=== PATIENT | female | born 2000 ===

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

== ENCOUNTER 2023-01-11 07:18 | Emergency (ER) | payer MEDICAID, SELFPAY ==
[2023-01-11 07:32] VITALS: BP 114/70; PULSE 88; RESP 18; TEMP 36.7; BMI 41.5
--- NOTE | 2023-01-11 07:42 | ED.NAVMDI ---
HPI - Nausea/Vomiting/Diarrhea General Chief complaint: Nausea/Vomiting/Diarrhea Stated complaint: Vomiting Time Seen by Provider: 01/11/23 07:23 Source: patient Mode of arrival: ambulatory Limitations: no limitations History of Present Illness HPI Narrative: patient is a 22-year-old female who presents emergency department for evaluation of nausea vomiting and diarrhea. She reports sudden onset at 0400 this morning, 4 episodes of clear / yellow emesis, single episode of diarrhea; loose stools. Diffuse upper abdominal pain with onset after multiple episodes of vomiting. Reports her son is ill at home with RSV, otherwise no known sick contacts. She denies fevers, chills, headache, dizziness, lightheadedness, URI symptoms, chest pain, shortness of breath, back pain. She endorses urinary frequency but denies dysuria, hematuria, possibility of with last menstrual period 12/27/2022 on Nexplanon. Related Data Previous Rx's Medication Instructions Recorded ondansetron 4 mg disintegrating 4 mg PO Q8H PRN nausea and 01/11/23 tablet vomiting #10 tabs Allergies Allergy/AdvReac Type Severity Reaction Status Date / Time No Known Allergies Allergy Unverified 11/24/19 17:09 Review of Systems Review of Systems: Yes all other systems are reviewed and are negative [facility] Past Medical History Attestation statement: The following information was validated with the patient. Source: old records reviewed Social History Social History Alcohol intake: never Smoked in Last 30 Days: No Use of substances other than those prescribed or required for medical reasons: No Advance Directives: No Physical Exam Vital Signs: Vital Signs: Last Vital Signs Temp 98.0 F 01/11/23 07:32 Pulse 88 01/11/23 07:32 Resp 18 01/11/23 07:32 BP 114/70 01/11/23 07:32 BMI result Body Mass Index 41.5 Appearance: Alert.?Oriented to person, place and time. No acute distress.?Normal affect. Eyes: Pupils equal, round and reactive to light.? ENT: Pharynx normal.?? TM normal bilaterally. Neck: Normal inspection.? Neck supple.?? No cervical lymphadenopathy CVS: Heart sounds normal. Normal heart rate and rhythm.? Pulses normal.?? Respiratory: No respiratory distress.? Lung sounds clear to auscultation bilaterally?? Abdomen: Soft With diffuse mild tenderness upon palpation. No rigidity. No guarding. No rebound tenderness. Negative Guillaume sign.. Normoactive bowel sounds. no CVA tenderness. Skin: Skin warm and dry.? Normal skin color.? Extremities: No lower extremity edema.? Neuro: Moves all extremities spontaneously. Sensation intact bilaterally. Ambulates with normal steady gait. Course Reevaluation(s) Reevaluation #1: Patient tolerating oral intake at this time, reports improvement in nausea with Zofran, no further episodes of vomiting. Labs are overall unremarkable, No leukocytosis, no electrolyte abnormality, no TANISHA. COVID- 19 and influenza testing is negative. Urinalysis without evidence of infection. Unlikely acute hepatobiliary etiology. I suspect viral syndrome, likely RSV secondary to sun currently being ill. Discussed conservative treatment. Zofran as needed are nausea vomiting. Outpatient follow-up with primary care provider and worrisome signs and symptoms that would warrant re-evaluation in the emergency department. All questions answered. Stable for discharge. Time: 09:28 Medications Administered Discontinued Medications Generic Name Dose Route Start Last Admin Trade Name Freq PRN Reason Stop Dose Admin Sodium Chloride 1,000 mls @ 999 mls/hr 01/11/23 07:45 01/11/23 07:52 Ns IV 01/11/23 08:45 999 mls/hr .Q1H1M KAY Administration Ondansetron HCl 4 mg 01/11/23 07:36 01/11/23 07:58 Ondansetron Hcl 4 Mg/2 Ml Vial IVPUSH 01/11/23 07:37 4 mg ONCE ONE Administration Medical Decision Making Medical Decision Making MDM Narrative: Patient is a 22-year-old female who presents emergency department for evaluation of sudden onset nausea vomiting and diarrhea earlier this morning while she was at work. Her son is ill at home with RSV currently experiencing respiratory symptoms, she denies URI symptoms. 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 Her abdominal examination reveals mild tenderness upon palpation diffusely, not consistent with acute abdomen. Overall she is well-appearing, nontoxic, afebrile, no tachycardia. No respiratory distress. Will obtain CBC to evaluate for leukocytosis/ anemia, CMP and lipase to evaluate for abnormal electrolytes /abnormal renal function/ abnormal hepatic/biliary function, Viral testing, hCG and Urinalysis. I suspect this is most likely a viral syndrome verses urinary tract infection. Patient received 1 L normal saline IV fluid, in addition to Zofran IV. Differential Diagnosis Differential Diagnoses: The differential diagnosis associated with the presentation includes ( COVID- 19, influenza, RSV, gastroenteritis, urinary tract infection. less likely acute cholecystitis, cholelithiasis, pancreatitis, PUD, obstruction, diverticulitis, appendicitis, pyelonephritis) Lab Data MDM Lab Attestation statement: I reviewed the patient's lab results. 01/11/23 07:51 01/11/23 07:51 Labs: Lab Results 01/11/23 01/11/23 Range/Units 07:51 08:34 WBC 10.5 (4.8-10.8) X10*3/uL RBC 5.10 (4.20-5.50) X10*6/uL Hgb 12.7 (12.0-16.0) g/dl Hct 41.0 (37.0-47.0) % MCV 80.4 (80.0-98.0) fL MCH 24.9 L (27.0-33.0) pg MCHC 31.0 (31.0-35.0) g/dl RDW 13.6 (11.0-16.0) % Plt Count 373 (160-400) X10*3/uL MPV 9.2 L (9.4-12.3) fL Immature Gran % (Auto) 0.4 (0.0-0.4) % Neut % (Auto) 75.5 H (45-73) % Lymph % (Auto) 19.4 L (20-40) % [place] % (Auto) 4.3 (2-11) % Eos % (Auto) 0.1 (0-4) % Baso % (Auto) 0.3 (0-2) % Lymph # (Auto) 2.0 (1.2-4.9) X10*3/uL [place] # (Auto) 0.5 (0.1-1.2) X10*3/uL Eos # (Auto) 0.0 (0.0-0.4) X10*3/uL Baso # (Auto) 0.0 (0.0-0.2) X10*3/uL Abs Immat Gran (auto) 0.04 H (0.00-0.03) X10*3/uL Absolute Neuts (auto) 7.9 (2.0-8.3) x10*3/uL Absolute Nucleated RBC 0.000 (0.0-0.012) X10*3/uL Nucleated RBC % (auto) 0.0 (0.0-0.2) /100WBC Sodium 137 (135-145) mmol/L Potassium 4.1 (3.3-5.1) mmol/L Chloride 107 (96-108) mmol/L Carbon Dioxide 21 L (22-29) mmol/L Anion Gap 13 (12-20) BUN 12 (9-16) mg/dL Creatinine 0.70 (0.5-1.4) mg/dL Estim Creat Clear Calc 153.9 Estimated GFR > 60 Random Glucose 95 (60-115) mg/dL Calcium 9.3 (8.4-10.2) mg/dL Total Bilirubin 0.3 (0.0-1.0) mg/dL AST 18 (5-31) U/L ALT 14 (0-31) U/L Alkaline Phosphatase 68 (39-117) U/L Total Protein 8.1 H (6.5-8.0) g/dL Albumin 4.3 (3.5-5.0) g/dL Lipase 14 (8-78) U/L Urine Color Yellow Urine Appearance Clear Urine pH 7.0 (5.0-9.0) Ur Specific [place] >= 1.030 H (1.005-1.025) Urine Protein Negative (Neg-Trace) mg/dL Urine Glucose (UA) Negative (Negative) mg/dL Urine Ketones Negative (Negative) mg/dL Urine Blood Negative (Negative) Urine Nitrite Negative (Negative) Ur Leukocyte Esterase Negative (Negative) Urine Test NEGATIVE (NEGATIVE) COVID-19 ([place]) Negative (Negative) COVID-19 Clin Com See Note Influenza Type A ([facility]) Negative (Negative) Influenza Type B ([facility]) Negative (Negative) Influenza A & B Note See Note External Record Review External record reviewed: Outpatient record Discharge Plan Discharge Clinical Impression: Nausea and vomiting Patient Disposition: Home, Self-Care Instructions: Acute Nausea and Vomiting (ED) Additional Instructions: please be sure to rest, stay well hydrated, drink plenty of fluids. Use Zofran as needed for nausea/ vomiting. Consumed clear liquids for today with slow progression of bland diet. Introduce a bland diet including crackers, bananas, rice, soup, toast, and boiled vegetables. This may progress to plain baked or boiled chicken or turkey. Avoid dairy products or foods high in fat or grease. People can experience vomiting and diarrhea associated with an RSV infection, given that your son has this it is likely you do as well. Your testing for COVID- 19 and influenza were negative. Your blood work is overall normal. Your urine testing does not show evidence of infection. In your testing is negative. Please contact your primary care provider to arrange for a follow-up visit within the next 3 days if you continue to have symptoms. You may return back to emergency department any new or worsening symptoms or concerns. Prescriptions: New ondansetron 4 mg tablet,disintegrating 4 mg PO Q8H PRN (Reason: nausea and vomiting) Qty: 10 0RF Referrals: [facility] [Primary Care Provider] - Stand Alone Forms: Work/School Release
[2023-01-11] MEDS: 0.9 % Sodium Chloride 1,000 ML 999 ML IV (07:52)
[2023-01-11 07:55] LABS: MANUAL DIFF FLAG NO
--- NOTE | 2023-01-11 07:55 | PC.NURSE ---
Patient reports was at work last night and around 4 am started having diarrhea and vomiting. Patient reports son has rsv. Denies sob, chest pain or headache.
[2023-01-11] MEDS: ondansetron HCL 4 MG/2 ML VIAL IVPUSH (07:58)
[2023-01-11 07:59] LABS: Basophils Percent Auto 0.3 % (0-2); Eosinophils Percent Auto 0.1 % (0-4); Hemoglobin 12.7 g/dl (12.0-16.0); Imm Gran Abs Auto 0.04 X10*3/uL (0.00-0.03); Imm Gran Pct Auto 0.4 % (0.0-0.4); Lymphocytes Percent Auto 19.4 % (20-40); Mean Corpuscular Hemoglobin 24.9 pg (27.0-33.0); Mean Corpuscular Volume 80.4 fL (80.0-98.0); Mean Platelet Volume 9.2 fL (9.4-12.3); Monocytes Absolute Auto 0.5 X10*3/uL (0.1-1.2); Monocytes Percent Auto 4.3 % (2-11); Neutrophils Absolute Auto 7.9 x10*3/uL (2.0-8.3); Neutrophils Percent Auto 75.5 % (45-73); Platelet Count 373 X10*3/uL (160-400); Red Cell Distribution Width 13.6 % (11.0-16.0); White Blood Count 10.5 X10*3/uL (4.8-10.8)
[2023-01-11 08:00] VITALS: O2SAT 98
[2023-01-11 08:19] LABS: COVID-19 Test Negative (Negative); IDNOW Serial# 08D9AD1C
[2023-01-11 08:20] LABS: IDNOW Serial# BCCEAD1C; Influenza A Negative (Negative); Influenza B2 Negative (Negative)
[2023-01-11 08:34] LABS: Alanine Aminotransferase 14 U/L (0-31); Albumin Level 4.3 g/dL (3.5-5.0); Alkaline Phosphatase 68 U/L (39-117); Anion Gap 13 (12-20); Aspartate Amino Transferase 18 U/L (5-31); Bilirubin Total 0.3 mg/dL (0.0-1.0); Blood Urea Nitrogen 12 mg/dL (9-16); Calcium 9.3 mg/dL (8.4-10.2); Carbon Dioxide 21 mmol/L (22-29); Chloride 107 mmol/L (96-108); Creatinine Clr Calc Pharmacy 153.9; Estimated Glomerular Filt Rate > 60; Glucose Random 95 mg/dL (60-115); Lipase 14 U/L (8-78); Potassium 4.1 mmol/L (3.3-5.1); Sodium 137 mmol/L (135-145); Total Protein 8.1 g/dL (6.5-8.0)
[2023-01-11 08:40] LABS: Appearance Urine Clear; Color Urine Yellow; Glucose Urine UA Negative (Negative); Leukocyte Esterase Urine Negative (Negative); Nitrite Urine Negative (Negative); Specific Gravity - Urine >= 1.030 (1.005-1.025); Urine Blood Negative (Negative); Urine Ketones Negative (Negative); Urine Protein Negative (Neg-Trace)
[2023-01-11 08:41] LABS: UPreg QC Valid YES; Urine Pregnancy NEGATIVE (NEGATIVE)
--- NOTE | 2023-01-11 09:28 | PC.NURSE ---
Patient reports feeling better after fluids and zofran.
--- NOTE | 2023-01-11 09:50 | PC.NURSE ---
Discharge plan reviewed with patient who verbalized understanding
== END 2023-01-11 09:51 | disposition home or self-care (01) ==
PROVIDERS: Nurse Practitioner Family; Emergency Provider Emergency Medicine
DX: R11.2 Nausea with vomiting, unspecified (principal); R10.10 Upper abdominal pain, unspecified; Z11.52 Encounter for screening for COVID-19
CPT/HCPCS: 80053; 81003; 81025; 83690; 85025; 87502; 87635; 96361; 96374; 99284; J2405

== ENCOUNTER 2023-03-05 09:25 | Outpatient (REF) | payer MEDICAID, SELFPAY ==
[2023-03-07 20:14] LABS: TS Negative Control Passed; TS Panel A 0; TS Panel B 4; TS Positive Control Passed; TSpotTB Negative (Negative)
== END 2023-03-05 09:26 | disposition home or self-care (01) ==
LOC: HO.HHCL 09:25
PROVIDERS: Visit Provider Pediatrics
DX: Z11.1 Encounter for screening for respiratory tuberculosis (principal)
CPT/HCPCS: 36415; 86481

== ENCOUNTER 2023-03-19 08:39 | Emergency (ER) | payer MEDICAID, SELFPAY ==
--- NOTE | ~2023-03-19 | XR_ITS ---
EXAMINATION: XR RIGHT FEMUR XR SACRUM/COCCYX XR LUMBAR SPINE XR RIGHT TOE CLINICAL INFORMATION: Status post fall down stairs. Midline tenderness. Right fifth toe pain. COMPARISON: None. TECHNIQUE: AP and lateral views of the right femur are obtained. AP and lateral views of the sacrum and coccyx were obtained. AP and lateral views of the lumbar spine were obtained. 3 views of the right fifth toe were obtained. AP view of the right foot. FINDINGS: Right femur: There is normal alignment. Right hip cartilage space is maintained. No displaced fracture or dislocation. Slight patella reyna is suspected. Sacrum/coccyx: Sacrum is partially obscured by overlying bowel contents. Sacroiliac joints are intact. There are parasymphyseal degenerative changes. No displaced fracture. Lumbar spine: Transitional lumbosacral anatomy and sacralization of L5. Vertebral body heights are maintained. Mild intervertebral disc space narrowing at L4-L5. Right fifth toe: Alignment is anatomic. Joint spaces are maintained. No displaced fracture or dislocation. XR/XR toe RT min 2V IMPRESSION: No acute abnormality.
--- NOTE | ~2023-03-19 | XR_ITS ---
EXAMINATION: XR RIGHT FEMUR XR SACRUM/COCCYX XR LUMBAR SPINE XR RIGHT TOE CLINICAL INFORMATION: Status post fall down stairs. Midline tenderness. Right fifth toe pain. COMPARISON: None. TECHNIQUE: AP and lateral views of the right femur are obtained. AP and lateral views of the sacrum and coccyx were obtained. AP and lateral views of the lumbar spine were obtained. 3 views of the right fifth toe were obtained. AP view of the right foot. FINDINGS: Right femur: There is normal alignment. Right hip cartilage space is maintained. No displaced fracture or dislocation. Slight patella reyna is suspected. Sacrum/coccyx: Sacrum is partially obscured by overlying bowel contents. Sacroiliac joints are intact. There are parasymphyseal degenerative changes. No displaced fracture. Lumbar spine: Transitional lumbosacral anatomy and sacralization of L5. Vertebral body heights are maintained. Mild intervertebral disc space narrowing at L4-L5. Right fifth toe: Alignment is anatomic. Joint spaces are maintained. No displaced fracture or dislocation. XR/XR lumbar spine 2-3V IMPRESSION: No acute abnormality.
--- NOTE | ~2023-03-19 | XR_ITS ---
EXAMINATION: XR RIGHT FEMUR XR SACRUM/COCCYX XR LUMBAR SPINE XR RIGHT TOE CLINICAL INFORMATION: Status post fall down stairs. Midline tenderness. Right fifth toe pain. COMPARISON: None. TECHNIQUE: AP and lateral views of the right femur are obtained. AP and lateral views of the sacrum and coccyx were obtained. AP and lateral views of the lumbar spine were obtained. 3 views of the right fifth toe were obtained. AP view of the right foot. FINDINGS: Right femur: There is normal alignment. Right hip cartilage space is maintained. No displaced fracture or dislocation. Slight patella reyna is suspected. Sacrum/coccyx: Sacrum is partially obscured by overlying bowel contents. Sacroiliac joints are intact. There are parasymphyseal degenerative changes. No displaced fracture. Lumbar spine: Transitional lumbosacral anatomy and sacralization of L5. Vertebral body heights are maintained. Mild intervertebral disc space narrowing at L4-L5. Right fifth toe: Alignment is anatomic. Joint spaces are maintained. No displaced fracture or dislocation. XR/XR femur RT 2V IMPRESSION: No acute abnormality.
--- NOTE | ~2023-03-19 | XR_ITS ---
EXAMINATION: XR RIGHT FEMUR XR SACRUM/COCCYX XR LUMBAR SPINE XR RIGHT TOE CLINICAL INFORMATION: Status post fall down stairs. Midline tenderness. Right fifth toe pain. COMPARISON: None. TECHNIQUE: AP and lateral views of the right femur are obtained. AP and lateral views of the sacrum and coccyx were obtained. AP and lateral views of the lumbar spine were obtained. 3 views of the right fifth toe were obtained. AP view of the right foot. FINDINGS: Right femur: There is normal alignment. Right hip cartilage space is maintained. No displaced fracture or dislocation. Slight patella reyna is suspected. Sacrum/coccyx: Sacrum is partially obscured by overlying bowel contents. Sacroiliac joints are intact. There are parasymphyseal degenerative changes. No displaced fracture. Lumbar spine: Transitional lumbosacral anatomy and sacralization of L5. Vertebral body heights are maintained. Mild intervertebral disc space narrowing at L4-L5. Right fifth toe: Alignment is anatomic. Joint spaces are maintained. No displaced fracture or dislocation. XR/XR sacrum coccyx min 2V IMPRESSION: No acute abnormality.
[2023-03-19 08:46] VITALS: BP 110/76; PULSE 85; O2SAT 98
[2023-03-19 08:52] VITALS: BP 102/49; PULSE 78; RESP 18; TEMP 36.6; O2SAT 98; BMI 39.9
[2023-03-19] MEDS: Ketorolac Tromethamine 30 MG/ML VIAL IM (09:31)
[2023-03-19] MEDS: Lidocaine 4 % Patch ADH..PATCH 1 PATCH TRANSDERMA (09:31)
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
[2023-03-19 10:53] VITALS: BP 107/59; PULSE 74; RESP 20; TEMP 36.1; O2SAT 99
== END 2023-03-19 10:55 | disposition home or self-care (01) ==
PROVIDERS: Emergency Provider Emergency Medicine
DX: S39.012A Strain of muscle, fascia and tendon of lower back, initial encounter (principal); W10.8XXA Fall (on) (from) other stairs and steps, initial encounter; Y93.9 Activity, unspecified; Y92.008 Other place in unspecified non-institutional (private) residence as the place of occurrence of the external cause; Y99.9 Unspecified external cause status
CPT/HCPCS: 72100; 72220; 73552; 73660; 96372; 99283; 99284; J1885

== ENCOUNTER 2023-06-10 14:36 | Outpatient (REF) | payer MEDICAID, SELFPAY ==
[2023-06-12 08:08] LABS: RPR Rapid Plasma Reagin NON-REACTIVE (NON-REACTIVE)
== END 2023-06-10 14:37 | disposition home or self-care (01) ==
LOC: HO.HHCL 14:36
PROVIDERS: Visit Provider Emergency Medicine
DX: R21 Rash and other nonspecific skin eruption (principal)
CPT/HCPCS: 36415; 86592

== ENCOUNTER 2023-07-08 11:55 | Outpatient (REF) | payer MEDICAID, SELFPAY ==
[2023-07-08 13:08] LABS: Estimated Average Glucose 111 mg/dL; Hemoglobin A1c % 5.5 % (<6.0)
[2023-07-08 13:49] LABS: Anion Gap 12 (12-20); Blood Urea Nitrogen 11 mg/dL (9-16); Calcium 9.2 mg/dL (8.4-10.2); Carbon Dioxide 25 mmol/L (22-29); Chloride 105 mmol/L (96-108); Estimated Glomerular Filt Rate > 60; Glucose Random 81 mg/dL (60-115); Potassium 4.1 mmol/L (3.3-5.1); Sodium 138 mmol/L (135-145)
[2023-07-09 03:33] LABS: CT PCR NOT DETECTED (Not Detect.); NG PCR NOT DETECTED (Not Detect.)
[2023-07-09 08:35] LABS: HIV AB/AG Nonreactive (Nonreactive); HIV Num 1 0.04 S/CO (0.00-0.99); ~HepC Num1 0.09 S/CO (0.00-0.79); ~Hepatitis C Antibody Nonreactive (Nonreactive)
== END 2023-07-08 11:56 | disposition home or self-care (01) ==
LOC: HO.HHCL 11:55
PROVIDERS: Visit Provider Nurse Practitioner Family
DX: L50.9 Urticaria, unspecified (principal); E66.01 Morbid (severe) obesity due to excess calories; Z68.41 Body mass index [BMI] 40.0-44.9, adult
CPT/HCPCS: 0353U; 36415; 80048; 83036; 86803; 87389

== ENCOUNTER 2023-09-07 18:27 | Outpatient (REF) | payer MEDICAID, SELFPAY ==
[2023-09-19 03:42] LABS: HPV mRNA E6/E7 Not Detected (Not Detected)
== END 2023-09-07 18:28 | disposition home or self-care (01) ==
LOC: HO.HHCLNP 18:27
PROVIDERS: Visit Provider Nurse Practitioner Family
DX: Z00.00 Encounter for general adult medical examination without abnormal findings (principal)
CPT/HCPCS: 36415; 87624; 87625; 88175

== ENCOUNTER 2024-10-11 18:14 | Outpatient (REF) | payer MEDICAID, SELFPAY ==
[2024-10-13 18:14] LABS: Trichomonas (NAAT) NOT DETECTED (NOT DETECTED)
[2024-10-13 18:28] LABS: C. trachomatis RNA TMA NOT DETECTED (NOT DETECTED); N. gonorrhoeae RNA TMA NOT DETECTED (NOT DETECTED)
== END 2024-10-11 18:15 | disposition home or self-care (01) ==
LOC: HO.HHCLNP 18:14
PROVIDERS: Visit Provider Nurse Practitioner Family
DX: Z00.00 Encounter for general adult medical examination without abnormal findings (principal); Z11.51 Encounter for screening for human papillomavirus (HPV); Z11.8 Encounter for screening for other infectious and parasitic diseases
CPT/HCPCS: 87491; 87591; 87626; 87661; 88175